=== PATIENT | male | born 1980 | race Caucasian/White ===

== ENCOUNTER 2019-07-19 10:38 | Emergency (ER) | payer BC, OTHER ==
[~2019-07-19] VITALS: Ht 185.4 cm; Wt 112.0 kg
[2019-07-19 10:47] VITALS: BP_SYST 162
[2019-07-19 14:08] VITALS: BP_SYST 152
== END 2019-07-19 14:08 | disposition home or self-care (01) ==
LOC: SED 10:38
DX: S16.1XXA Strain of muscle, fascia and tendon at neck level, initial encounter (principal); S90.32XA Contusion of left foot, initial encounter; S80.212A Abrasion, left knee, initial encounter; S80.211A Abrasion, right knee, initial encounter; V23.4XXA Motorcycle driver injured in collision with car, pick-up truck or van in traffic accident, initial encounter; Y93.89 Activity, other specified; Y92.410 Unspecified street and highway as the place of occurrence of the external cause; Y99.8 Other external cause status
CPT/HCPCS: 71045; 72050-TC; 73564; 99283

== ENCOUNTER 2019-08-13 12:15 | Emergency (ER) | payer OTHER ==
[~2019-08-13] VITALS: Ht 188 cm; Wt 121.1 kg
[2019-08-13 12:31] VITALS: BP_SYST 150
[2019-08-13] MEDS ORDERED: MECLIZINE HCL 25 MG TABLET (ANITVERT) PO ONE (14:00)
[2019-08-13] MEDS ORDERED: NACL 0.9% 1,000 ML IV ONE (14:00)
[2019-08-13 14:08] LABS: BASOPHILS % (AUTO) 0.6 % (0.0-2.0); EOSINOPHILS # (AUTO) 0.2 K/uL (0.0-0.4); EOSINOPHILS % (AUTO) 3.2 % (0.0-4.0); HEMATOCRIT 40.7 % (36-54); HEMOGLOBIN 14.2 g/dL (14.0-18.0); LYMPHOCYTES # (AUTO) 2.1 K/uL (1.0-5.5); LYMPHOCYTES % (AUTO) 32.3 % (20.5-51.5); MEAN CORPUSCULAR HEMOGLOBIN 31 pg (27-31); MEAN CORPUSCULAR HGB CONC 35 % (32-36); MEAN CORPUSCULAR VOLUME 90 fL (79.0-98.0); MONOCYTES # (AUTO) 0.4 K/uL (0.0-1.0); MONOCYTES % (AUTO) 6.3 % (1.7-9.3); NEUTROPHILS # (AUTO) 3.7 K/uL (1.8-7.7); NEUTROPHILS % (AUTO) 57.6 % (40.0-70.0); PLATELET COUNT (AUTO) 219 K/uL (130-430); RED BLOOD CELL COUNT(AUTO) 4.55 MIL/uL (4.2-6.2); RED CELL DISTRIBUTION WIDTH 12.9 % (9.0-15.0); WHITE BLOOD COUNT (AUTO) 6.5 K/uL (4.8-10.8)
[2019-08-13 14:26] LABS: CREATININE 0.95 mg/dL (0.55-1.30); POTASSIUM 4.3 mmol/L (3.5-5.1)
[2019-08-13 14:32] LABS: ALBUMIN 3.7 g/dL (3.4-4.8); TOTAL BILIRUBIN 0.5 mg/dL (0.0-1.0)
== END 2019-08-13 15:30 | disposition home or self-care (01) ==
LOC: SED 12:15
DX: R42 Dizziness and giddiness (principal); E11.9 Type 2 diabetes mellitus without complications
CPT/HCPCS: 36415; 70450; 80053; 85025; 99284; J7030; J8597

== ENCOUNTER 2020-03-05 16:46 | Emergency (ER) | payer OTHER ==
[~2020-03-05] VITALS: Ht 188 cm; Wt 81.6 kg
[2020-03-05 16:50] VITALS: BP_SYST 160
--- NOTE | 2020-03-05 16:53 | NUR ---
Patient to ER bed 03 to gown for evaluation. Side rails up.
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
[2020-03-05] MEDS ORDERED: KETOROLAC TROMETHAMINE 60 MG/2 ML VIAL IM ONE (17:00)
--- NOTE | 2020-03-05 17:00 | NUR ---
ER at bedside examining patient.
--- NOTE | 2020-03-05 17:09 | NUR ---
medicated the pt w/ Toradol per md order. Will reassess
--- NOTE | 2020-03-05 17:12 | NUR ---
Patient transported to radiology via , accompanied by x-ray tech.
[2020-03-05] MEDS ORDERED: KETOROLAC TROMETHAMINE 30 MG VIAL ONE (17:17)
--- NOTE | 2020-03-05 17:20 | NUR ---
pt returned from x-ray
[2020-03-05 17:45] VITALS: BP_SYST 160
--- NOTE | 2020-03-05 17:45 | NUR ---
Patient given written and verbal discharge instructions and verbalizes understanding. ER MD discussed with patient the results and treatment provided. Patient in stable condition. ID arm band removed. Rx of Naprosyn given. Patient educated on pain management and to follow up with PMD. Pain Scale 4 tolerable. Opportunity for questions provided and answered. Medication side effect fact sheet provided.
== END 2020-03-05 17:45 | disposition home or self-care (01) ==
LOC: SED 16:46
DX: S93.691A Other sprain of right foot, initial encounter (principal); W23.0XXA Caught, crushed, jammed, or pinched between moving objects, initial encounter; Y93.89 Activity, other specified; Y92.89 Other specified places as the place of occurrence of the external cause; Y99.8 Other external cause status; I10 Essential (primary) hypertension; E11.9 Type 2 diabetes mellitus without complications
CPT/HCPCS: 73610; 73630; 96372; 99284; J1885

== ENCOUNTER 2020-10-21 20:28 | Emergency (ER) | payer OTHER, SELFPAY ==
[~2020-10-21] VITALS: Ht 188 cm; Wt 122.5 kg
--- NOTE | 2020-10-21 20:40 | NUR ---
SHOSHANA Arauz at bedside examining patient.
[2020-10-21 20:50] VITALS: BP_SYST 187
[2020-10-21] MEDS ORDERED: ONDANSETRON 4 MG ODT TAB PO ONE (23:00)
[2020-10-21] MEDS ORDERED: HYDROcodone/ACETAMIN 5-325 MG TAB (NORCO/ VICODIN) PO ONE (23:00)
[2020-10-21] MEDS ORDERED: ONDANSETRON 4 MG ODT TAB ONE (23:00)
[2020-10-21] MEDS ORDERED: cloNIDine HCL 0.1 MG TABLET PO ONE (23:00)
--- NOTE | 2020-10-21 23:09 | NUR ---
patient medicated as ordered. will observe for any adverse reaction. b/p noted at 170/110. denies any neuro focal deficits. Patient resting quietly. No acute distress noted. Continue to monitor level of comfort.
[2020-10-21 23:50] LABS: BASOPHILS % (AUTO) 0.3 % (0.0-2.0); EOSINOPHILS % (AUTO) 0.6 % (0.0-4.0); HEMATOCRIT 45.4 % (36-54); HEMOGLOBIN 15.7 g/dL (14.0-18.0); LYMPHOCYTES # (AUTO) 0.5 K/uL (1.0-5.5); LYMPHOCYTES % (AUTO) 8.2 % (20.5-51.5); MEAN CORPUSCULAR HEMOGLOBIN 30 pg (27-31); MEAN CORPUSCULAR HGB CONC 35 % (32-36); MEAN CORPUSCULAR VOLUME 88 fL (79.0-98.0); MONOCYTES # (AUTO) 0.7 K/uL (0.0-1.0); MONOCYTES % (AUTO) 11.2 % (1.7-9.3); NEUTROPHILS # (AUTO) 5.3 K/uL (1.8-7.7); NEUTROPHILS % (AUTO) 79.7 % (40.0-70.0); PLATELET COUNT (AUTO) 194 K/uL (130-430); RED BLOOD CELL COUNT(AUTO) 5.15 MIL/uL (4.2-6.2); RED CELL DISTRIBUTION WIDTH 12.8 % (9.0-15.0); WHITE BLOOD COUNT (AUTO) 6.7 K/uL (4.8-10.8)
[2020-10-22 00:08] LABS: CALCIUM 9.2 mg/dL (8.4-11.0); CREATININE 1.17 mg/dL (0.55-1.30); POTASSIUM 4.1 mmol/L (3.5-5.1)
[2020-10-22 00:14] LABS: ALBUMIN 4.2 g/dL (3.4-4.8); TOTAL BILIRUBIN 0.6 mg/dL (0.0-1.0)
[2020-10-22 00:20] VITALS: BP_SYST 152
--- NOTE | 2020-10-22 00:21 | NUR ---
Patient pain decreased to 4/10, b/p also noted to decrease to 152/106. No neuro focal deficit asst. Patient resting quietly. No acute distress noted. Vital signs within normal range.
--- NOTE | 2020-10-22 00:42 | NUR ---
Patient given written and verbal discharge instructions and verbalizes understanding. ER MD discussed with patient the results and treatment provided. Patient in stable condition. ID arm band removed. IV catheter removed intact and dressing applied, no active bleeding. Rx of given. Patient educated on pain management and to follow up with PMD. Pain Scale . Opportunity for questions provided and answered. Medication side effect fact sheet provided.
== END 2020-10-22 00:42 | disposition home or self-care (01) ==
LOC: SED 20:28
DX: U07.1 COVID-19 (principal); H66.91 Otitis media, unspecified, right ear; I10 Essential (primary) hypertension; E11.9 Type 2 diabetes mellitus without complications
CPT/HCPCS: 36415; 71045; 80053; 82962; 85025; 87426; 99284; Q0162

== ENCOUNTER 2021-07-25 16:43 | Emergency (ER) | payer MEDICAID, OTHER, SELFPAY ==
[~2021-07-25] VITALS: Ht 188 cm; Wt 115.7 kg
[2021-07-25 17:01] VITALS: BP_SYST 145
[2021-07-25 19:05] LABS: CALCIUM 8.7 mg/dL (8.4-11.0); CREATININE 1.13 mg/dL (0.55-1.30); POTASSIUM 4.4 mmol/L (3.5-5.1)
[2021-07-25 19:11] LABS: ALBUMIN 3.5 g/dL (3.4-4.8); TOTAL BILIRUBIN 0.4 mg/dL (0.0-1.0)
[2021-07-25 19:24] LABS: C-REACTIVE PROTEIN QUANT 0.4 mg/dL (0-0.5)
[2021-07-25 19:29] LABS: BASOPHILS % (AUTO) 0.5 % (0.0-2.0); EOSINOPHILS # (AUTO) 0.2 K/uL (0.0-0.4); EOSINOPHILS % (AUTO) 3.7 % (0.0-4.0); HEMATOCRIT 40.3 % (36-54); HEMOGLOBIN 14.3 g/dL (14.0-18.0); LYMPHOCYTES # (AUTO) 2.2 K/uL (1.0-5.5); MEAN CORPUSCULAR HEMOGLOBIN 31 pg (27-31); MEAN CORPUSCULAR HGB CONC 36 % (32-36); MEAN CORPUSCULAR VOLUME 88 fL (79.0-98.0); MONOCYTES # (AUTO) 0.4 K/uL (0.0-1.0); MONOCYTES % (AUTO) 6.6 % (1.7-9.3); NEUTROPHILS % (AUTO) 51.2 % (40.0-70.0); PLATELET COUNT (AUTO) 202 K/uL (130-430); RED BLOOD CELL COUNT(AUTO) 4.56 MIL/uL (4.2-6.2); RED CELL DISTRIBUTION WIDTH 12.7 % (9.0-15.0); WHITE BLOOD COUNT (AUTO) 5.8 K/uL (4.8-10.8)
[2021-07-25] MEDS ORDERED: IBUP-1969 PO (20:23)
[2021-07-25 20:27] LABS: ERYTHROCYTE SEDIMENTATION RATE 12 MM/HR (0-15)
[2021-07-25 20:35] VITALS: BP_SYST 149
== END 2021-07-25 20:35 | disposition home or self-care (01) ==
LOC: SED 16:43
DX: M77.8 Other enthesopathies, not elsewhere classified (principal); M25.532 Pain in left wrist; M25.522 Pain in left elbow; M25.511 Pain in right shoulder; M54.5 Low back pain; I10 Essential (primary) hypertension; E11.9 Type 2 diabetes mellitus without complications
CPT/HCPCS: 36415; 80053; 85025; 85651-TC; 86140; 99283

== ENCOUNTER 2021-10-02 21:07 | Emergency (ER) | payer MEDICAID ==
[~2021-10-02] VITALS: Ht 188 cm; Wt 113.4 kg
[~2021-10-02 21:07] MED LIST: IBUP-1969 PO
[2021-10-02 21:20] VITALS: BP_SYST 156
[2021-10-03] MEDS ORDERED: ACETAMINOPHEN 500 MG TABLET PO ONE (00:15)
[2021-10-03 01:17] VITALS: BP_SYST 159
== END 2021-10-03 01:17 | disposition home or self-care (01) ==
LOC: SED 21:07
DX: M79.675 Pain in left toe(s) (principal); I10 Essential (primary) hypertension; E11.9 Type 2 diabetes mellitus without complications; Z79.899 Other long term (current) drug therapy
CPT/HCPCS: 99283

== ENCOUNTER 2024-03-17 17:50 | Emergency (ER) | payer MEDICAID ==
[2024-03-17 18:41] VITALS: BP_SYST 167; PULSE 75; RESP 16; TEMP 98.8; O2SAT 96
[2024-03-17] MEDS ORDERED: NABU-140 PO (18:57)
[2024-03-17] MEDS ORDERED: HYDR-3917 PO (18:57)
[2024-03-17] MEDS: IBUPROFEN 600 MG TABLET PO ONE (19:24)
== END 2024-03-17 19:29 | disposition home or self-care (01) ==
LOC: SED 17:50
DX: M77.8 Other enthesopathies, not elsewhere classified (principal); I10 Essential (primary) hypertension; E11.9 Type 2 diabetes mellitus without complications; Z79.899 Other long term (current) drug therapy
CPT/HCPCS: 99283